=== PATIENT | male | born 1965 | race Caucasian/White ===

== ENCOUNTER 2020-10-21 05:31 | Day surgery (SDC) | payer BC ==
[2020-10-21] MEDS ORDERED: TROP1%/CYCLOPEN 1%/PHENYL 2.5% DROPS OPHTH ONE (05:32)
[2020-10-21] MEDS ORDERED: MIDAZOLAM INJ 5 MG/5 ML VIAL ONE (10:33)
[2020-10-21] MEDS ORDERED: DEXAMETHASONE 0.1% OPHTH SOL 1 DROP RIGHT_EYE ONE (10:37)
[2020-10-21] MEDS ORDERED: LIDOCAINE 1% 2 ML VIAL INJ ONE (10:37)
[2020-10-21] MEDS ORDERED: PROPARACAINE 0.5% OPHTH SOL 15 ML BTTL RIGHT_EYE ONE (10:37)
[2020-10-21] MEDS ORDERED: BRIMONIDINE 0.2% OPHTH DROPS RIGHT_EYE ONE (10:37)
[2020-10-21] MEDS ORDERED: MOXIFLOXACIN HCL (OPHTH) 1 DROP DROPS RIGHT_EYE ONE (10:37)
[2020-10-21] MEDS ORDERED: TOBRAMYCIN SULF 0.3 % OPHT SOL 1 DROP RIGHT_EYE ONE (10:37)
== END 2020-10-21 11:41 | disposition home or self-care (01) ==
LOC: AMB 05:31
PROVIDERS: ATTEND Ophthalmology
DX: H25.11 Age-related nuclear cataract, right eye (principal)
CPT/HCPCS: 00142; 66984; J2250